=== PATIENT | male | born 1960 | race Caucasian/White ===

== ENCOUNTER 2020-11-06 16:08 | Emergency (ER) | payer OTHER ==
[2020-11-06] MEDS ORDERED: MEDROL DOSEPAK 24 MG PO (17:22)
[2020-11-06] MEDS ORDERED: Voltaren Gel 1% TOP (17:22)
== END 2020-11-06 17:48 | disposition home or self-care (01) ==
LOC: ER1 16:08
DX: G89.29 Other chronic pain (principal); M54.5 Low back pain; J44.9 Chronic obstructive pulmonary disease, unspecified; E78.5 Hyperlipidemia, unspecified; F17.210 Nicotine dependence, cigarettes, uncomplicated; Z95.1 Presence of aortocoronary bypass graft; Z88.5 Allergy status to narcotic agent; I11.9 Hypertensive heart disease without heart failure
CPT/HCPCS: 96372; 99283; J2270; J2930